=== PATIENT | female | born 1960 | race African-American/Black ===

== ENCOUNTER 2018-07-05 09:44 | Inpatient (IN) | payer OTHER ==
[2018-07-02 09:28] VITALS: BMI 32.8
[2018-07-05] MEDS ORDERED: HEPARIN NA (PORCINE) 5,000 UNITS/ML 1ML VIAL ONE (14:31)
[2018-07-05] MEDS ORDERED: BENZOIN TINCTURE SWABSTICK TP ONE (14:32)
[2018-07-05] MEDS ORDERED: THROMBIN (BOVINE) 5,000 UNIT VIAL TP ONE ×2 (14:32→15:28)
[2018-07-05] MEDS ORDERED: fentaNYL CITRATE 250 MCG/5 ML VIAL ONE (14:42)
[2018-07-05] MEDS ORDERED: PROPOFOL 20 ML ONE ×13 (14:42→17:43)
[2018-07-05] MEDS ORDERED: ROCURONIUM BROMIDE 50 MG/5 ML VIAL ONE (14:43)
[2018-07-05] MEDS ORDERED: SUCCINYLCHOLINE CHLORIDE 200 MG/10 ML VIAL ONE (14:43)
[2018-07-05] MEDS ORDERED: MIDAZOLAM HCL 2 MG/2 ML SINGLE DOSE VIAL ONE (14:43)
[2018-07-05] MEDS ORDERED: LIDOCAINE HCL/PF 2% SDV 5ML VIAL ONE (14:43)
[2018-07-05] MEDS ORDERED: VANCOMYCIN 1,000 MG VIAL (RESTRICTED TO ID ONLY) IVPB ONE (14:45)
[2018-07-05] MEDS ORDERED: ONDANSETRON 4 MG/2 ML VIAL ONE (14:49)
[2018-07-05] MEDS ORDERED: DEXAMETHASONE SOD PHOSPHATE 4 MG/1 ML VIAL ONE (14:49)
[2018-07-05] MEDS ORDERED: VANCOMYCIN 1,000 MG VIAL (RESTRICTED TO ID ONLY) ONE (14:53)
[2018-07-05] MEDS ORDERED: ceFAZolin SODIUM 1 GM VIAL ONE (15:28)
[2018-07-05] MEDS ORDERED: SODIUM CHLORIDE 0.9% P/F 10 ML VIAL IJ ONE (15:30)
[2018-07-05] MEDS ORDERED: ceFAZolin SODIUM 1 GM VIAL IVPB ONE (15:30)
[2018-07-05] MEDS ORDERED: ONDANSETRON 4 MG/2 ML VIAL IVPUSH PRN ×2 (16:03→18:17)
[2018-07-05] MEDS ORDERED: DEXAMETHASONE SOD PHOSPHATE 4 MG/1 ML VIAL IVPUSH PRN (16:03)
[2018-07-05] MEDS ORDERED: PROMETHAZINE HCL 25 MG/1 ML VIAL IVPB PRN (16:03)
[2018-07-05] MEDS ORDERED: HYDROmorphone *PCA* 10MG/50ML DISP.SYRIN PCA SCH (16:15)
[2018-07-05] MEDS ORDERED: LACTATED RINGERS SOLUTION 1,000 ML IV SCH (16:15)
[2018-07-05] MEDS ORDERED: TRANEXAMIC ACID 1000 MG/10 ML VIAL ONE (16:18)
[2018-07-05] MEDS ORDERED: GLYCOPYRROLATE 0.2 MG/1 ML VIAL ONE ×2 (16:35→17:56)
[2018-07-05] MEDS ORDERED: NEOSTIGMINE METHYLSULFATE 0.5 MG/1 ML - 10 ML MDV ONE ×2 (16:35→17:55)
[2018-07-05] MEDS ORDERED: METOPROLOL TARTRATE 5 MG/5 ML VIAL ONE (18:13)
--- NOTE | 2018-07-05 18:15 | PN ---
Progress Note (short form) - Note Progress Note: 57F s/p C5-C6 anterior cervical discectomy, decompression and instrumented fusion POD #0. -Admit to ICU x 24 hrs. for airway observation; OK to discharge home or downgrade to floor or discharge home 07/06/2018 if airway stable. -Maintain head of bed 45-60 degrees. -Pain medication: per anaesthesia team; no ECHO VASCULAR TECH; NO NSAID's. -DVT PPx: -Mechanical only: ALYSE's, SCD's. -Post-op Ancef x 2 doses. -f/u AM labs. -Incentive spirometry. -PT/OT/Rehab, OOB. -WBAT B/L UE & LE. -d/c Farrell catheter at midnight; f/u TOV (8 hours max). -Keep dressing clean & dry. -No heavy lifting, bending or twisting. -Advance diet as tolerated. -B/L UE & LE NV checks. -Care per ICU & primary medical hospitalist teams. -Discharge planning: f/u [facility] [place] office 07/15/2018; call for appointment; . Milton Mcnair MD (Orthopaedic Surgery).
--- NOTE | 2018-07-05 18:17 | OP ---
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
[2018-07-05] MEDS ORDERED: HYDROmorphone *PCA* 10MG/50ML DISP.SYRIN PCA ONE (18:26)
[2018-07-05] MEDS ORDERED: ACETAMINOPHEN 1000 MG/100 ML VIAL (NON FORMULARY) IVPB ONE (18:29)
[2018-07-05] MEDS ORDERED: ACETAMINOPHEN INJECTION 100 ML IVPB ONE (18:36)
[2018-07-05] MEDS: LACTATED RINGERS SOLUTION 1,000 ML IV SCH ×2 (21:15→21:48)
--- NOTE | 2018-07-05 21:58 | CONSULT ---
Consultation: REQUESTING PROVIDER: CONSULT REQUEST: We have been asked to medically evaluate this patient for ( post op care----> ICU admission). HISTORY OF PRESENT ILLNESS: Patient is a 57 year old female came in to the hospital for an elective back surgery. As per the patient, she had a mechanical fall in 2016 at work, since then she has been having back pain. Not relived with pain medication or physical therapy. Has been seeing Dr. Mcnair as outpatient for back pain and was sent in today for an elective surgery. Patient underwent C5-C6 ACDF today for C5-C6 intervertebral disc disorder with radiculopathy and myelopathy. Extubated post surgery and brought to the ICU for airway monitoring. Post op, patient looks comfortable, pain controlled with FLIGHT RADIO OPERATOR. Denies numbness, tingling, any focal neurological deficits, abdominal pain , nausea, vomiting, chest pain, shortness of breath, palpitation. Prior to illness, bowel/bladder habit normal. Sleep/Appetite normal. PAST MEDICAL HISTORY: Hypertension ALLERGIES: Aspirin (gets hives), Multiple foods PAST SURGICAL HISTORY: Right shoulder surgery in 2016 and sx for ectopic in 1996 SOCIAL HISTORY Smoking: Quit 6 yrs ago, smoked since teenager about a pack a day Alcohol: Quit 6 yrs ago. 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 REVIEW OF SYSTEMS: CONSTITUTIONAL: Absent: fever, chills, diaphoresis, generalized weakness, malaise, loss of appetite, weight change HEENT: Absent: rhinorrhea, nasal congestion, throat pain, throat swelling, difficulty swallowing, mouth swelling, ear pain, eye pain, visual changes CARDIOVASCULAR: Absent: chest pain, syncope, palpitations, irregular heart rate, lightheadedness , peripheral edema RESPIRATORY: Absent: cough, shortness of breath, dyspnea with exertion, orthopnea, wheezing, stridor, hemoptysis GASTROINTESTINAL: Absent: abdominal pain, abdominal distension, nausea, vomiting, diarrhea, constipation, melena, hematochezia GENITOURINARY: Absent: dysuria, frequency, urgency, hesitancy, hematuria, flank pain, genital pain MUSCULOSKELETAL: Present: Pain at the surgical site. Absent: myalgia, arthralgia, joint swelling, back pain, neck pain SKIN: Absent: rash, itching, pallor HEMATOLOGIC/IMMUNOLOGIC: Absent: easy bleeding, easy bruising, lymphadenopathy, frequent infections ENDOCRINE: Absent: unexplained weight gain, unexplained weight loss, heat intolerance, cold intolerance NEUROLOGIC: Absent: headache, focal weakness or paresthesias, dizziness, unsteady gait, seizure, mental status changes, bladder or bowel incontinence PSYCHIATRIC: Absent: anxiety, depression, suicidal or homicidal ideation, hallucinations. PHYSICAL EXAMINATION Vital Signs - 24 hr 07/05/18 07/05/18 07/05/18 11:08 11:15 18:19 Temperature 98.1 F 98.4 F Pulse Rate 67 74 Respiratory 20 16 Rate Blood Pressure 125/79 162/91 O2 Sat by Pulse 100 98 Oximetry (%) 07/05/18 07/05/18 07/05/18 18:30 18:35 18:50 Temperature Pulse Rate 69 69 63 Respiratory 16 16 16 Rate Blood Pressure 131/72 131/72 135/59 L O2 Sat by Pulse 100 100 Oximetry (%) 07/05/18 07/05/18 07/05/18 19:00 19:05 19:20 Temperature Pulse Rate 64 64 64 Respiratory 14 14 14 Rate Blood Pressure 122/81 122/81 142/78 O2 Sat by Pulse 100 100 Oximetry (%) 07/05/18 07/05/18 07/05/18 19:30 19:35 19:50 Temperature Pulse Rate 62 62 61 Respiratory 16 16 16 Rate Blood Pressure 139/74 139/74 141/92 O2 Sat by Pulse 100 100 Oximetry (%) 07/05/18 07/05/18 07/05/18 20:05 20:20 20:35 Temperature Pulse Rate 56 L 61 60 Respiratory 14 14 16 Rate Blood Pressure 121/70 122/72 124/68 O2 Sat by Pulse 100 100 100 Oximetry (%) 07/05/18 07/05/18 07/05/18 20:50 21:15 21:30 Temperature 97.9 F Pulse Rate 58 L 61 71 Respiratory 14 14 14 Rate Blood Pressure 127/72 137/78 138/82 O2 Sat by Pulse 100 Oximetry (%) GENERAL: Middle aged female, lying in bed comfortably, Awake, alert, and fully oriented, in no acute distress. EYES: EOM intact, no pallor or icterus. EARS, NOSE, THROAT: Moist mucous membranes. NECK: Dressing applied in the anterior part of the neck, no soakage. LUNGS: B/L lungs clear, no added sounds. HEART: Regular rate and rhythm, normal S1 and S2 without murmur. ABDOMEN: Soft, nontender, no organomegaly, BS +. UPPER EXTREMITIES: No peripheral edema. LOWER EXTREMITIES: No peripheral edema. NEUROLOGICAL: No facial droop. Normal speech. Gait not observed. SKIN: Warm, dry, normal turgor, no rashes or lesions noted. Laboratory Results - last 24 hr 07/05/18 07/05/18 10:05 10:49 Blood Type O POSITIVE O POSITIVE Antibody Screen Negative Active Medications Generic Name Dose Route Start Last Admin Trade Name Freq PRN Reason Stop Dose Admin Amlodipine Besylate 10 mg 07/06/18 10:00 Norvasc - PO DAILY A[facility] Cyclobenzaprine HCl 10 mg 07/06/18 10:00 Flexeril - PO DAILY [facility] Dexamethasone Sodium Phosphate 4 mg 07/05/18 16:03 Decadron Injection - IVPUSH ONCE PRN NAUSEA AND/OR VOMITING Diphenhydramine HCl 12.5 mg 07/05/18 16:03 Benadryl Injection - IVPUSH ONCE PRN FOR ITCHING Fentanyl 50 mcg 07/05/18 16:03 Sublimaze Injection - IVPUSH 07/06/18 03:00 Q5M PRN PAIN-PACU ORDER X 4 DOSES ONLY Gabapentin 400 mg 07/05/18 22:00 Neurontin - PO TID [facility] Hydromorphone HCl 10 mg 07/05/18 16:15 07/05/18 18:30 Dilaudid Freezer Laboratory Technician - FLIGHT RADIO OPERATOR 07/12/18 16:03 10 mg FLIGHT RADIO OPERATOR AARON Administration Protocol Lactated Ringer's 1,000 mls @ 125 mls/hr 07/05/18 18:30 07/05/18 21:48 Lactated Ringers Solution IV 125 mls/hr ASDIR AARON Administration Cefazolin Sodium/Dextrose 2 gm in 50 mls @ 100 mls/hr 07/05/18 23:30 Ancef 2 Gm Premixed Ivpb - IVPB 07/06/18 07:59 Q8H AARON Ondansetron HCl 4 mg 07/05/18 18:17 Zofran Injection IVPUSH Q6H PRN NAUSEA AND/OR VOMITING Oxycodone HCl 5 mg 07/05/18 18:17 Roxicodone - PO Q4H PRN PAIN LEVEL 1-5 Oxycodone HCl 10 mg 07/05/18 18:17 Roxicodone - PO Q4H PRN PAIN LEVEL 6-10 Promethazine HCl 12.5 mg 07/05/18 16:03 Phenergan Injection - IVPB Q6H PRN NAUSEA AND/OR VOMITING ASSESSMENT/PLAN: Patient is a 57 year old female with past medical history of hypertension came in to the hospital for an elective back surgery # Cervical radiculopathy and myelopathy s/p C5-C6 ACDF Extubated post op. EBL 30 ml, fluid vol replaced 1400 mls on FLIGHT RADIO OPERATOR pump for pain control OOB to chair in AM Physical therapy in AM Incentive spirometry Soft diet IV LR @ 125 mls/hr # Hypertension-controlled Continue Amlodipine 10 mg # FEN IV LR @ 125 mls/hr Electrolytes to be repeated in AM Soft Diet # Prophylaxis For DVT: On Scds, no chemical prophylaxis given recent surgery For GI: Not indicated # Code Status: Full Code # Dispo: Airway monitoring in ICU Mili Lenz, PGY-3. Dispo: We will continue to follow the patient. Thank you for this consultative opportunity.
[2018-07-05] MEDS: GABAPENTIN 400 MG CAPSULE (FP) PO SCH (22:34)
[2018-07-05] MEDS: CEFAZOLIN 2 GM/D5W 2 GM/50 ML ML IVPB SCH (22:34)
[2018-07-05] MEDS ORDERED: ceFAZolin 2 GRAM PREMIX BAG IVPB SCH (23:30)
--- NOTE | 2018-07-06 00:06 | PN ---
Physical Exam: SUBJECTIVE: Patient seen and examined OBJECTIVE: Vital Signs Period Temp Pulse Resp BP Sys/Mccrary Pulse Ox Last 24 Hr 97.9 F-98.4 F 56-75 14-20 121-162/59-92 98-100 GENERAL: The patient is awake, alert, and fully oriented, in no acute distress. HEAD: Normal with no signs of trauma. EYES: PERRL, extraocular movements intact, sclera anicteric, conjunctiva clear. No ptosis. ENT: Ears normal, nares patent, oropharynx clear without exudates, moist mucous membranes. NECK: Trachea midline, full range of motion, supple. LUNGS: Breath sounds equal, clear to auscultation bilaterally, no wheezes, no crackles, no accessory muscle use. HEART: Regular rate and rhythm, S1, S2 without murmur, rub or gallop. ABDOMEN: Soft, nontender, nondistended, normoactive bowel sounds, no guarding, no rebound, no hepatosplenomegaly, no masses. EXTREMITIES: 2+ pulses, warm, well-perfused, no edema. NEUROLOGICAL: Cranial nerves II through XII grossly intact. Normal speech, gait not observed. PSYCH: Normal mood, normal affect. SKIN: Warm, dry, normal turgor, no rashes or lesions noted Laboratory Results - last 24 hr 07/05/18 07/05/18 10:05 10:49 Blood Type O POSITIVE O POSITIVE Antibody Screen Negative Active Medications Generic Name Dose Route Start Last Admin Trade Name Freq PRN Reason Stop Dose Admin Amlodipine Besylate 10 mg 07/06/18 10:00 Norvasc - PO DAILY [facility] Cyclobenzaprine HCl 10 mg 07/06/18 10:00 Flexeril - PO DAILY [facility] Dexamethasone Sodium Phosphate 4 mg 07/05/18 16:03 Decadron Injection - IVPUSH ONCE PRN NAUSEA AND/OR VOMITING Diphenhydramine HCl 12.5 mg 07/05/18 16:03 Benadryl Injection - IVPUSH ONCE PRN FOR ITCHING Fentanyl 50 mcg 07/05/18 16:03 Sublimaze Injection - IVPUSH 07/06/18 03:00 Q5M PRN PAIN-PACU ORDER X 4 DOSES ONLY Gabapentin 400 mg 07/05/18 22:00 07/05/18 22:34 Neurontin - PO 400 mg TID A[facility]ON Administration Hydromorphone HCl 10 mg 07/05/18 16:15 07/05/18 18:30 Dilaudid Special Needs Caregiver - SEWER MAINTENANCE SUPERVISOR 07/12/18 16:03 10 mg SEWER MAINTENANCE SUPERVISOR AARON Administration Protocol Lactated Ringer's 1,000 mls @ 125 mls/hr 07/05/18 18:30 07/05/18 21:48 Lactated Ringers Solution IV 125 mls/hr ASDIR AARON Administration Cefazolin Sodium/Dextrose 2 gm in 50 mls @ 100 mls/hr 07/05/18 23:30 22:34 Ancef 2 Gm Premixed Ivpb - IVPB 07/06/18 07:59 100 mls/hr Q8H AARON Administration Ondansetron HCl 4 mg 07/05/18 18:17 Zofran Injection IVPUSH Q6H PRN NAUSEA AND/OR VOMITING Oxycodone HCl 5 mg 07/05/18 18:17 Roxicodone - PO Q4H PRN PAIN LEVEL 1-5 Oxycodone HCl 10 mg 07/05/18 18:17 Roxicodone - PO Q4H PRN PAIN LEVEL 6-10 Promethazine HCl 12.5 mg 07/05/18 16:03 Phenergan Injection - IVPB Q6H PRN NAUSEA AND/OR VOMITING ASSESSMENT/PLAN: Visit type - Emergency Visit Emergency Visit: No - New Patient This patient is new to me today: Yes Date on this admission: 07/05/18 - Critical Care Critical Care patient: Yes Total Critical Care Time (in minutes): 32 Critical Care Statement: The care of this patient involved high complexity decision making to prevent further life threatening deterioration of the patient 's condition and/or to evaluate & treat vital organ system(s) failure or risk of failure.
--- NOTE | 2018-07-06 01:21 | OP ---
DATE OF OPERATION: 07/05/2018 SURGEON: Milton Mcnair M.D. CAMPUS WELLNESS COORDINATOR: Raul Mcnair M.D. PREOPERATIVE DIAGNOSIS: Disk prolapse with kyphosis, C5-6. POSTOPERATIVE DIAGNOSIS: Disk prolapse with kyphosis, C5-6. OPERATION PERFORMED: 1. Anterior cervical diskectomy C5-6. 2. Partial corpectomy C5, partial corpectomy C6. 3. Insertion of interbody device (Fortilink cage) combined with bone graft. 4. Anterior plating thus completing instrumented anterior arthrodesis. ANESTHESIA: 2 g Kefzol, 1 g vancomycin, 10 mg of Decadron given preoperative. DESCRIPTION OF PROCEDURE: Patient brought in the operating room placed supine on the operating room table. The neck was extended with a transverse bolster placed behind the scapulae. Once this had been performed, the lateral fluoroscopic x-ray revealed excellent visualization of the neck, albeit the shoulders had been pulled downwards with appropriate taping. A window drape applied and the skin was cleansed with Betadine scrub solution, wiped off with alcohol, DuraPrep applied. Operation details: After timeout was called, imaging was available for intraoperative evaluation and lateral fluoroscopic x-rays were present. The wound was opened in the lines of Edward on the right hand side. The dissection was taken through the subcutaneous fat and very flimsy platysma encountered, but this was split. Investing layer was incised longitudinally up and down, that is from cranial to caudal. With a finger digital palpation, the undersurface of the investing layer was swept to free the underlying surface of the deeper muscle layer. Using digital palpation, the anterior vertebral column was easily palpated, sneaking a finger between the viscera and vessels. Cloward handheld retractors were used to retract the longus colli and this was freed, lifted off the bone of the vertebral bodies by about a half a centimeter both left and right hand side for the teeth of the retractor to be seated within the confines of the muscle. Once this had been performed, the correct levels of surgery were identified. A 90-90 bent 18-gauge needle was placed in the C5-6 disk. Lateral fluoroscopic x-ray confirmed our position. Medial and lateral retractors were inserted to open up the wound mediolaterally, superior, inferiorly retraction was facilitated by the use of Biola pins. 12-mm pins were sunk into the superior body of C5 and 1 Biola pin placed in the middle body of C6, an outrigger device applied for distraction. The disk was distracted. Somewhat large osteophytes were encountered anteriorly. Using unipolar Bovie on cutting, the annulus was cut off the edge of the bone, and using a 14-mm Midas Devan radha-tipped bur as well as number 1, 1.5, and 2 Kerrison entire disk was removed, all bone was removed appropriately, and appropriate partial corpectomies were necessary at C5 and C6 in order to provide an appropriate spacer for the actual interbody cage. This measured size 10. The dissection was taken right down to the theca. The entire posterior longitudinal ligament was removed, and the dissection was taken out laterally both on the left and right hand side as well. No neuromonitoring abnormality was encountered. The bleeding interspace was dealt with with FloSeal combined with thrombin-soaked Gelfoam sponges. This was left in situ for about 2-3 minutes, and all bleeding stopped. Size 10 Fortilink cage mixed with bone morphogenic mineral putty was then seated in a distracted manner, and once the cage was seated, the distraction device was removed, the Biola pins were then removed, and holes filled with bone wax. The table top that is the anterior surface of the vertebral body of C5 and C6 were then resected. It must be noted a large degree of bone was resected from C6 but partial corpectomy had been reformed. The plate was a size 16-mm 1-hole level plate, this was Simplicity plate, 4 screws inserted into the bone, had excellent solid fixation of plates. The screws were locked into position. No complications. Neuromonitoring remained completely stable throughout. A little bit of hand EMG activity for about a few minutes in the middle of the operation and then disappeared. Once this all had been ascertained and final films were taken, excellent positioning of the grafts and plates noted. The wounds were thoroughly lavaged and complete hemostasis achieved. Closure of the platysma with subcutaneous 2-0 Vicryl, skin 3-0 Monocryl with Steri-Strips. Drainage none. Operation went extremely well, no complications. MD ALEXEY Alberts/[id number]
[2018-07-06] MEDS: GABAPENTIN 400 MG CAPSULE (FP) PO SCH ×3 (05:54→21:48)
[2018-07-06] MEDS: CEFAZOLIN 2 GM/D5W 2 GM/50 ML ML IVPB SCH (06:31)
[2018-07-06] MEDS: oxyCODONE HCL 5 MG TABLET PO PRN ×3 (07:03→21:46)
--- NOTE | 2018-07-06 07:19 | PN ---
Physical Exam: SUBJECTIVE: Patient seen and examined at bedside, reported mild neck pain which Oxycodone has provided relief. Pt reported she is feeling well and would like to go home today. OBJECTIVE: Vital Signs Period Temp Pulse Resp BP Sys/Mccrary Pulse Ox Last 24 Hr 97.7 F-98.4 F 53-96 8-20 121-162/59-92 97-100 GENERAL: The patient is awake, alert, and fully oriented, in no acute distress. HEAD: Normal with no signs of trauma. EYES: PERRL, extraocular movements intact, sclera anicteric, conjunctiva clear. No ptosis. ENT: Ears normal, nares patent, oropharynx clear without exudates, moist mucous membranes. NECK: Dressing on anterior cervical area. Trachea midline, full range of motion , supple. LUNGS: Breath sounds equal, clear to auscultation bilaterally, no wheezes, no crackles, no accessory muscle use. HEART: Regular rate and rhythm, S1, S2 without murmur, rub or gallop. ABDOMEN: Soft, nontender, nondistended, normoactive bowel sounds, no guarding, no rebound, no hepatosplenomegaly, no masses. EXTREMITIES: 2+ pulses, warm, well-perfused, no edema. NEUROLOGICAL: Cranial nerves II through XII grossly intact. Full strength all extremities. Full sensation throughout. Normal speech, gait not observed. PSYCH: Normal mood, normal affect. SKIN: Warm, dry, normal turgor, no rashes or lesions noted Laboratory Results - last 24 hr 07/05/18 07/05/18 10:05 10:49 Blood Type O POSITIVE O POSITIVE Antibody Screen Negative Active Medications Generic Name Dose Route Start Last Admin Trade Name Freq PRN Reason Stop Dose Admin Amlodipine Besylate 10 mg 07/06/18 10:00 Norvasc - PO DAILY [facility] Cyclobenzaprine HCl 10 mg 07/06/18 10:00 Flexeril - PO DAILY [facility] Dexamethasone Sodium Phosphate 4 mg 07/05/18 16:03 Decadron Injection - IVPUSH ONCE PRN NAUSEA AND/OR VOMITING Diphenhydramine HCl 12.5 mg 07/05/18 16:03 Benadryl Injection - IVPUSH ONCE PRN FOR ITCHING Gabapentin 400 mg 07/05/18 22:00 07/06/18 05:54 Neurontin - PO 400 mg TID AARON Administration Hydromorphone HCl 10 mg 07/05/18 16:15 07/05/18 18:30 Dilaudid Director [employer] - EQUINE PHARMACOLOGY TECHNICIAN 07/12/18 16:03 10 mg EQUINE PHARMACOLOGY TECHNICIAN AARON Administration Protocol Lactated Ringer's 1,000 mls @ 125 mls/hr 07/05/18 18:30 07/05/18 21:48 Lactated Ringers Solution IV 125 mls/hr ASDIR AARON Administration Cefazolin Sodium/Dextrose 2 gm in 50 mls @ 100 mls/hr 07/05/18 23:30 06:31 Ancef 2 Gm Premixed Ivpb - IVPB 07/06/18 07:59 100 mls/hr Q8H AARON Administration Ondansetron HCl 4 mg 07/05/18 18:17 Zofran Injection IVPUSH Q6H PRN NAUSEA AND/OR VOMITING Oxycodone HCl 5 mg 07/05/18 18:17 Roxicodone - PO Q4H PRN PAIN LEVEL 1-5 Oxycodone HCl 10 mg 07/05/18 18:17 07/06/18 07:03 Roxicodone - PO 10 mg Q4H PRN Administration PAIN LEVEL 6-10 Promethazine HCl 12.5 mg 07/05/18 16:03 Phenergan Injection - IVPB Q6H PRN NAUSEA AND/OR VOMITING ASSESSMENT/PLAN: NEURO #C5-C6 ACDF POD1 -EQUINE PHARMACOLOGY TECHNICIAN for pain control --Pt has not used today -Oxycodone 5 mg PO Q4H PRN for pain -Oxycodone 10 mg PO Q4H PRN for pain -Phenergan 12.5 mg IV Q6H PRN for nausea -Zofran 4 mg IV Q6H PRN for nausea -Out of bed -Physical therapy RESPIRATORY -Satting well on room air -Continue to monitor CARDIOVASCULAR #HX OF HTN -Amlodipine 10 mg PO daily FEN -LR @ 125 cc/hour -Soft diet PPX -DVT: SCD, no chemical s/p surgery -GI: none DISPO Med/Surg Visit type - Emergency Visit Emergency Visit: No - New Patient This patient is new to me today: Yes Date on this admission: 07/06/18 - Critical Care Critical Care patient: No - Discharge Referral Referred to [facility] Med P.C.: No
[2018-07-06] MEDS: amLODIPine BESYLATE 10 MG TABLET (FP) PO SCH (09:28)
[2018-07-06] MEDS: CYCLOBENZAPRINE HCL 10 MG TABLET (FP) PO SCH (09:28)
[2018-07-06 10:58] LABS: HEMATOCRIT 39.4 % (32.4-45.2); HEMOGLOBIN 12.6 GM/dL (10.7-15.3); MCH 25.3 pg (25.7-33.7); MCHC 31.9 g/dl (32.0-36.0); MEAN CELL VOLUME 79.4 fl (80-96); MEAN PLT VOLUME 8.5 fl (7.5-11.1); PLATELET COUNT 270 K/MM3 (134-434); RBC 4.96 M/mm3 (3.60-5.2); RDW 15.6 % (11.6-15.6); WHITE BLOOD COUNT 23.3 K/mm3 (4.0-10.0)
[2018-07-06 11:27] LABS: ALBUMIN 3.3 g/dl (3.4-5.0); ALK PHOS 112 U/L (45-117); ANION GAP 6 MMOL/L (8-16); BILIRUBIN,TOTAL 0.4 mg/dL (0.2-1); BLOOD UREA NITROGEN 12 mg/dL (7-18); CALCIUM 9.2 mg/dL (8.5-10.1); CHLORIDE 101 mmol/L (98-107); CO2 31 mmol/L (21-32); CREATININE 0.8 mg/dL (0.55-1.3); GLUCOSE,RANDOM 158 mg/dL (74-106); MAGNESIUM 2.2 mg/dL (1.8-2.4); PHOSPHOROUS 3.4 mg/dL (2.5-4.9); POTASSIUM 3.7 mmol/L (3.5-5.1); SGOT/AST 32 U/L (15-37); SGPT/ALT 24 U/L (13-61); SODIUM 137 mmol/L (136-145); TOT PROT 7.2 g/dl (6.4-8.2)
--- NOTE | 2018-07-06 12:58 | PN ---
Teaching Attending Note Name of Resident: Valarie Goncalves ATTENDING PHYSICIAN STATEMENT I saw and evaluated the patient. I reviewed the resident's note and discussed the case with the resident. I agree with the resident's findings and plan as documented. SUBJECTIVE: Pt seen and examined in the ICU. Pain controlled. No shortness of breath. No fevers or chills. OBJECTIVE: Vital Signs Period Temp Pulse Resp BP Sys/Mccrary Pulse Ox Last 24 Hr 97.4 F-98.4 F 53-96 8-16 121-162/59-101 97-100 Intake & Output 07/03/18 07/04/18 07/05/18 07/06/18 23:59 23:59 23:59 23:59 Intake Total 1750 1980 Output Total 1425 900 Balance 325 1080 Gen: NAD in chair Heart: RRR Lung: decreased breath sounds at the bases Abd: soft, nontender Ext: no edema CBC, BMP 07/06/18 10:46 07/06/18 10:46 Active Medications Amlodipine Besylate (Norvasc -) 10 mg PO DAILY [facility] Last Admin: 07/06/18 09:28 Dose: 10 mg Cyclobenzaprine HCl (Flexeril -) 10 mg PO DAILY [facility] Last Admin: 07/06/18 09:28 Dose: 10 mg Dexamethasone Sodium Phosphate (Decadron Injection -) 4 mg IVPUSH ONCE PRN PRN Reason: NAUSEA AND/OR VOMITING Diphenhydramine HCl (Benadryl Injection -) 12.5 mg IVPUSH ONCE PRN PRN Reason: FOR ITCHING Gabapentin (Neurontin -) 400 mg PO TID [facility] Last Admin: 07/06/18 05:54 Dose: 400 mg Hydromorphone HCl (Dilaudid Plasterer Tender -) 10 mg TWISTHAND TWISTHAND [facility]; Protocol Stop: 07/12/18 16:03 Last Admin: 07/05/18 18:30 Dose: 10 mg Lactated Ringer's (Lactated Ringers Solution) 1,000 mls @ 125 mls/hr IV ASDIR [facility] Last Admin: 07/05/18 21:48 Dose: 125 mls/hr Ondansetron HCl (Zofran Injection) 4 mg IVPUSH Q6H PRN PRN Reason: NAUSEA AND/OR VOMITING Oxycodone HCl (Roxicodone -) 5 mg PO Q4H PRN PRN Reason: PAIN LEVEL 1-5 Oxycodone HCl (Roxicodone -) 10 mg PO Q4H PRN PRN Reason: PAIN LEVEL 6-10 Last Admin: 07/06/18 07:03 Dose: 10 mg Promethazine HCl (Phenergan Injection -) 12.5 mg IVPB Q6H PRN PRN Reason: NAUSEA AND/OR VOMITING ASSESSMENT AND PLAN: C5-C6 intervertebral disc disorder with radiculopathy and myelopathy s/p C5-C6 ACDF HTN - pain control - incentive spirometry - bowel regimen - PO as tolerated - rehab/PT - DVT prophylaxis - can monitor on floor
--- NOTE | 2018-07-06 20:32 | PN ---
Physical Exam: SUBJECTIVE: Patient seen and examined - s/p cervical spine fusion - no complaints voiced OBJECTIVE: Vital Signs Period Temp Pulse Resp BP Sys/Mccrary Pulse Ox Last 24 Hr 97.4 F-99.7 F 53-96 8-18 122-151/62-101 97-100 GENERAL: The patient is awake, alert, and fully oriented, in no acute distress. Sitting in chair at bedside HEAD: Normal with no signs of trauma. EYES: PERRL, extraocular movements intact, sclera anicteric, conjunctiva clear. ENT: nares patent, oropharynx clear without exudates, moist mucous membranes. NECK: Trachea midline, dry dsg anterior neck LUNGS: Breath sounds equal, clear to auscultation bilaterally, no wheezes, no crackles, no accessory muscle use. HEART: Regular rate and rhythm, S1, S2 without murmur, rub or gallop. ABDOMEN: Soft, nontender, nondistended, normoactive bowel sounds, no guarding, EXTREMITIES: 2+ pulses, warm, well-perfused, no edema. NEUROLOGICAL: Normal speech, gait not observed. normal sensation x 4 ext, full ROM x 4 PSYCH: Normal mood, normal affect. SKIN: Warm, dry, normal turgor, no rashes or lesions noted Laboratory Results - last 24 hr 07/06/18 07/06/18 10:46 10:46 WBC 23.3 H RBC 4.96 Hgb 12.6 Hct 39.4 MCV 79.4 L MCH 25.3 L MCHC 31.9 L RDW 15.6 Plt Count 270 MPV 8.5 Sodium 137 Potassium 3.7 Chloride 101 Carbon Dioxide 31 Anion Gap 6 L BUN 12 Creatinine 0.8 Creat Clearance w eGFR 74.47 Random Glucose 158 H Calcium 9.2 Phosphorus 3.4 Magnesium 2.2 Total Bilirubin 0.4 AST 32 ALT 24 Alkaline Phosphatase 112 Total Protein 7.2 Albumin 3.3 L Active Medications Generic Name Dose Route Start Last Admin Trade Name Freq PRN Reason Stop Dose Admin Amlodipine Besylate 10 mg 07/06/18 10:00 07/06/18 09:28 Norvasc - PO 10 mg DAILY AARON Administration Cyclobenzaprine HCl 10 mg 07/06/18 10:00 07/06/18 09:28 Flexeril - PO 10 mg DAILY AARON Administration Dexamethasone Sodium Phosphate 4 mg 07/05/18 16:03 Decadron Injection - IVPUSH ONCE PRN NAUSEA AND/OR VOMITING Diphenhydramine HCl 12.5 mg 07/05/18 16:03 Benadryl Injection - IVPUSH ONCE PRN FOR ITCHING Gabapentin 400 mg 07/05/18 22:00 07/06/18 15:20 Neurontin - PO 400 mg TID AARON Administration Hydromorphone HCl 10 mg 07/05/18 16:15 07/05/18 18:30 Dilaudid Filer And Sander - AIR BAG BUFFER 07/12/18 16:03 10 mg AIR BAG BUFFER AARON Administration Protocol Ondansetron HCl 4 mg 07/05/18 18:17 Zofran Injection IVPUSH Q6H PRN NAUSEA AND/OR VOMITING Oxycodone HCl 5 mg 07/05/18 18:17 07/06/18 15:20 Roxicodone - PO 5 mg Q4H PRN Administration PAIN LEVEL 1-5 Oxycodone HCl 10 mg 07/05/18 18:17 07/06/18 07:03 Roxicodone - PO 10 mg Q4H PRN Administration PAIN LEVEL 6-10 Promethazine HCl 12.5 mg 07/05/18 16:03 Phenergan Injection - IVPB Q6H PRN NAUSEA AND/OR VOMITING ASSESSMENT/PLAN: 58M POD1 s/p L4-5 posterior lumbar interbody fusion under GA- ETT. Problem List - Problems (1) Status post cervical spinal fusion Assessment/Plan: PT OOB to chair clears Pain control with neurontin/flexeril and oxycodone Phenergan PRN nausea transfer to [facility] floor in AM Code(s): Z98.1 - ARTHRODESIS STATUS (2) HTN (hypertension) Assessment/Plan: norvasc 10mg daily Code(s): I10 - ESSENTIAL (PRIMARY) HYPERTENSION (3) Prophylactic measure Assessment/Plan: ambulate SCDs/compression stockings Code(s): Z29.9 - ENCOUNTER FOR PROPHYLACTIC MEASURES, UNSPECIFIED Visit type - Emergency Visit Emergency Visit: No - New Patient This patient is new to me today: Yes Date on this admission: 07/06/18 - Critical Care Critical Care patient: Yes Total Critical Care Time (in minutes): 45 Critical Care Statement: The care of this patient involved high complexity decision making to prevent further life threatening deterioration of the patient 's condition and/or to evaluate & treat vital organ system(s) failure or risk of failure. - Discharge Referral Referred to [facility] Med P.C.: No
[2018-07-07] MEDS: GABAPENTIN 400 MG CAPSULE (FP) PO SCH (05:27)
[2018-07-07 06:31] LABS: BASO % 0.2 % (0-2.0); EOS % 0.1 % (0-4.5); HEMATOCRIT 38.4 % (32.4-45.2); HEMOGLOBIN 12.3 GM/dL (10.7-15.3); MCH 25.4 pg (25.7-33.7); MCHC 32.1 g/dl (32.0-36.0); MEAN CELL VOLUME 79.1 fl (80-96); MEAN PLT VOLUME 8.9 fl (7.5-11.1); NEUT % 71.7 % (42.8-82.8); PLATELET COUNT 273 K/MM3 (134-434); RBC 4.85 M/mm3 (3.60-5.2); RDW 15.5 % (11.6-15.6)
[2018-07-07 06:58] LABS: ANION GAP 4 MMOL/L (8-16); BLOOD UREA NITROGEN 11 mg/dL (7-18); CALCIUM 8.7 mg/dL (8.5-10.1); CHLORIDE 105 mmol/L (98-107); CO2 32 mmol/L (21-32); CREATININE 0.7 mg/dL (0.55-1.3); GLUCOSE,RANDOM 89 mg/dL (74-106); POTASSIUM 3.5 mmol/L (3.5-5.1); SODIUM 142 mmol/L (136-145)
--- NOTE | 2018-07-07 08:04 | PN ---
Physical Exam: SUBJECTIVE: Patient seen and examined at bedside, reported decreasing paresthesias. Pt reported she has ambulated without assistance. Pt stated she feels she is ready to go home. OBJECTIVE: Vital Signs Period Temp Pulse Resp BP Sys/Mccrary Pulse Ox Last 24 Hr 97.4 F-99.7 F 64-92 10-22 124-151/67-101 100-100 GENERAL: The patient is awake, alert, and fully oriented, in no acute distress. ambulated to restroom well unassisted. HEAD: Normal with no signs of trauma. EYES: PERRL, extraocular movements intact, sclera anicteric, conjunctiva clear. No ptosis. ENT: Ears normal, nares patent, oropharynx clear without exudates, moist mucous membranes. NECK: Dressing on anterior cervical area. Trachea midline, full range of motion , supple. LUNGS: Breath sounds equal, clear to auscultation bilaterally, no wheezes, no crackles, no accessory muscle use. HEART: Regular rate and rhythm, S1, S2 without murmur, rub or gallop. ABDOMEN: Soft, nontender, nondistended, normoactive bowel sounds, no guarding, no rebound, no hepatosplenomegaly, no masses. EXTREMITIES: 2+ pulses, warm, well-perfused. 4+ pitting edema to bilateral lower extremities up to the knees. NEUROLOGICAL: Cranial nerves II through XII grossly intact. Full strength all extremities. Full sensation throughout. Normal speech, gait not observed. PSYCH: Normal mood, normal affect. SKIN: Warm, dry, normal turgor, no rashes or lesions noted. Laboratory Results - last 24 hr 07/06/18 07/06/18 07/07/18 10:46 10:46 05:30 WBC 23.3 H 15.0 H RBC 4.96 4.85 Hgb 12.6 12.3 Hct 39.4 38.4 MCV 79.4 L 79.1 L MCH 25.3 L 25.4 L MCHC 31.9 L 32.1 RDW 15.6 15.5 Plt Count 270 273 MPV 8.5 8.9 Absolute Neuts (auto) 10.8 H Neutrophils % 71.7 Lymphocytes % 20.0 Monocytes % 8.0 Eosinophils % 0.1 Basophils % 0.2 Nucleated RBC % 0 Sodium 137 Potassium 3.7 Chloride 101 Carbon Dioxide 31 Anion Gap 6 L BUN 12 Creatinine 0.8 Creat Clearance w eGFR 74.47 Random Glucose 158 H Calcium 9.2 Phosphorus 3.4 Magnesium 2.2 Total Bilirubin 0.4 AST 32 ALT 24 Alkaline Phosphatase 112 Total Protein 7.2 Albumin 3.3 L 07/07/18 05:30 WBC RBC Hgb Hct MCV MCH MCHC RDW Plt Count MPV Absolute Neuts (auto) Neutrophils % Lymphocytes % Monocytes % Eosinophils % Basophils % Nucleated RBC % Sodium 142 Potassium 3.5 Chloride 105 Carbon Dioxide 32 Anion Gap 4 L BUN 11 Creatinine 0.7 Creat Clearance w eGFR 86.88 Random Glucose 89 Calcium 8.7 Phosphorus Magnesium Total Bilirubin AST ALT Alkaline Phosphatase Total Protein Albumin Active Medications Generic Name Dose Route Start Last Admin Trade Name Freq PRN Reason Stop Dose Admin Amlodipine Besylate 10 mg 07/06/18 10:00 07/06/18 09:28 Norvasc - PO 10 mg DAILY AARON Administration Cyclobenzaprine HCl 10 mg 07/06/18 10:00 07/06/18 09:28 Flexeril - PO 10 mg DAILY AARON Administration Dexamethasone Sodium Phosphate 4 mg 07/05/18 16:03 Decadron Injection - IVPUSH ONCE PRN NAUSEA AND/OR VOMITING Diphenhydramine HCl 12.5 mg 07/05/18 16:03 Benadryl Injection - IVPUSH ONCE PRN FOR ITCHING Gabapentin 400 mg 07/05/18 22:00 07/07/18 05:27 Neurontin - PO 400 mg TID AARON Administration Hydromorphone HCl 10 mg 07/05/18 16:15 07/05/18 18:30 Dilaudid Lighting Engineering Technician - LIBRARY CLERK 07/12/18 16:03 10 mg LIBRARY CLERK AARON Administration Protocol Ondansetron HCl 4 mg 07/05/18 18:17 Zofran Injection IVPUSH Q6H PRN NAUSEA AND/OR VOMITING Oxycodone HCl 5 mg 07/05/18 18:17 07/06/18 21:46 Roxicodone - PO 5 mg Q4H PRN Administration PAIN LEVEL 1-5 Oxycodone HCl 10 mg 07/05/18 18:17 07/06/18 07:03 Roxicodone - PO 10 mg Q4H PRN Administration PAIN LEVEL 6-10 Promethazine HCl 12.5 mg 07/05/18 16:03 Phenergan Injection - IVPB Q6H PRN NAUSEA AND/OR VOMITING ASSESSMENT/PLAN: NEURO #C5-C6 ACDF POD1 -Oxycodone 5 mg PO Q4H PRN for pain -Oxycodone 10 mg PO Q4H PRN for pain -Phenergan 12.5 mg IV Q6H PRN for nausea -Zofran 4 mg IV Q6H PRN for nausea -Out of bed -Physical therapy RESPIRATORY -Satting well on room air -Continue to monitor CARDIOVASCULAR #HX OF HTN -Amlodipine 10 mg PO daily FEN -No IVF -Soft diet PPX -DVT: SCD, no chemical s/p surgery -GI: none DISPO DC home per Dr. Mcnair -Outpatient follow up on with Dr. Mcnair Primary team to prepare discharge Visit type - Emergency Visit Emergency Visit: No - New Patient This patient is new to me today: No - Critical Care Critical Care patient: No - Discharge Referral Referred to [facility] Med P.C.: No
[2018-07-07] MEDS: oxyCODONE HCL 5 MG TABLET PO PRN (08:19)
[2018-07-07] MEDS: CYCLOBENZAPRINE HCL 10 MG TABLET (FP) PO SCH (09:04)
[2018-07-07] MEDS: amLODIPine BESYLATE 10 MG TABLET (FP) PO SCH (09:04)
--- NOTE | 2018-07-07 10:01 | PN ---
Physical Exam: SUBJECTIVE: Patient seen and examined in the icu. 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 s/p cervical spine fusion on 07/05/18 Vital Signs Period Temp Pulse Resp BP Sys/Mccrary Pulse Ox Last 24 Hr 97.8 F-99.7 F 64-92 14-22 124-151/62-98 100 GENERAL: The patient is awake, alert, and fully oriented, in no acute distress. Sitting in chair at bedside HEAD: Normal with no signs of trauma. EYES: PERRL, extraocular movements intact, sclera anicteric, conjunctiva clear. ENT: nares patent, oropharynx clear without exudates, moist mucous membranes. NECK: Trachea midline, dry dsg anterior neck LUNGS: Breath sounds equal, clear to auscultation bilaterally, no wheezes, no crackles, no accessory muscle use. HEART: Regular rate and rhythm, S1, S2 without murmur, rub or gallop. ABDOMEN: Soft, nontender, nondistended, normoactive bowel sounds, no guarding, EXTREMITIES: 2+ pulses, warm, well-perfused, no edema. NEUROLOGICAL: Normal speech, gait not observed. normal sensation x 4 ext, full ROM x 4 PSYCH: Normal mood, normal affect. SKIN: Warm, dry, normal turgor, no rashes or lesions noted Laboratory Results - last 24 hr 07/06/18 07/06/18 07/07/18 10:46 10:46 05:30 WBC 23.3 H 15.0 H RBC 4.96 4.85 Hgb 12.6 12.3 Hct 39.4 38.4 MCV 79.4 L 79.1 L MCH 25.3 L 25.4 L MCHC 31.9 L 32.1 RDW 15.6 15.5 Plt Count 270 273 MPV 8.5 8.9 Absolute Neuts (auto) 10.8 H Neutrophils % 71.7 Lymphocytes % 20.0 Monocytes % 8.0 Eosinophils % 0.1 Basophils % 0.2 Nucleated RBC % 0 Sodium 137 Potassium 3.7 Chloride 101 Carbon Dioxide 31 Anion Gap 6 L BUN 12 Creatinine 0.8 Creat Clearance w eGFR 74.47 Random Glucose 158 H Calcium 9.2 Phosphorus 3.4 Magnesium 2.2 Total Bilirubin 0.4 AST 32 ALT 24 Alkaline Phosphatase 112 Total Protein 7.2 Albumin 3.3 L 07/07/18 05:30 WBC RBC Hgb Hct MCV MCH MCHC RDW Plt Count MPV Absolute Neuts (auto) Neutrophils % Lymphocytes % Monocytes % Eosinophils % Basophils % Nucleated RBC % Sodium 142 Potassium 3.5 Chloride 105 Carbon Dioxide 32 Anion Gap 4 L BUN 11 Creatinine 0.7 Creat Clearance w eGFR 86.88 Random Glucose 89 Calcium 8.7 Phosphorus Magnesium Total Bilirubin AST ALT Alkaline Phosphatase Total Protein Albumin Active Medications Generic Name Dose Route Start Last Admin Trade Name Freq PRN Reason Stop Dose Admin Amlodipine Besylate 10 mg 07/06/18 10:00 07/07/18 09:04 Norvasc - PO 10 mg DAILY AARON Administration Cyclobenzaprine HCl 10 mg 07/06/18 10:00 07/07/18 09:04 Flexeril - PO 10 mg DAILY AARON Administration Dexamethasone Sodium Phosphate 4 mg 07/05/18 16:03 Decadron Injection - IVPUSH ONCE PRN NAUSEA AND/OR VOMITING Diphenhydramine HCl 12.5 mg 07/05/18 16:03 Benadryl Injection - IVPUSH ONCE PRN FOR ITCHING Gabapentin 400 mg 07/05/18 22:00 07/07/18 05:27 Neurontin - PO 400 mg TID AARON Administration Hydromorphone HCl 10 mg 07/05/18 16:15 07/05/18 18:30 Dilaudid Worksite Wellness Practitioner - NECK PINNER 07/12/18 16:03 10 mg NECK PINNER AARON Administration Protocol Ondansetron HCl 4 mg 07/05/18 18:17 Zofran Injection IVPUSH Q6H PRN NAUSEA AND/OR VOMITING Oxycodone HCl 5 mg 07/05/18 18:17 07/06/18 21:46 Roxicodone - PO 5 mg Q4H PRN Administration PAIN LEVEL 1-5 Oxycodone HCl 10 mg 07/05/18 18:17 07/07/18 08:19 Roxicodone - PO 10 mg Q4H PRN Administration PAIN LEVEL 6-10 Promethazine HCl 12.5 mg 07/05/18 16:03 Phenergan Injection - IVPB Q6H PRN NAUSEA AND/OR VOMITING ASSESSMENT/PLAN: Patient is a 57 year old female with a past medical history of hypertension. She is s/p POD2 s/p L4-5 posterior lumbar interbody fusion under GA-ETT. She has been cleared for discharge by surgeon. She is tolerating her diet (soft) without difficulty in swallowing. No airway compromise. Ambulated with PT today. Surgery s/p post cervical spinal fusion with Dr. Mcnair. Tolerating physical therapy pain management with oxycodone tolerating soft diet without difficulty Pain control with oxycodone (patient has oxycodone prescription at home) Card: Hypertension. controlled. On Norvasc 10mg daily fen tolerating soft diet monitor electrolytes soft diet prophy scds, ambulation. full code Discharge: Discharge home per Dr. Mcnair with follow up on full code. Visit type - Emergency Visit Emergency Visit: Yes ED Registration Date: 07/05/18 Care time: The patient presented to the Emergency Department on the above date and was hospitalized for further evaluation of their emergent condition. - New Patient This patient is new to me today: Yes Date on this admission: 07/07/18 - Critical Care Critical Care patient: No - Discharge Referral Referred to [facility] Med P.C.: No
--- NOTE | 2018-07-07 10:17 | DS ---
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 s/p cervical spine fusion on 07/05/18 Vital Signs Period Temp Pulse Resp BP Sys/Mccrary Pulse Ox Last 24 Hr 97.8 F-99.7 F 64-92 14-22 124-151/62-98 100 PHYSICAL EXAM GENERAL: The patient is awake, alert, and fully oriented, in no acute distress. Sitting in chair at bedside HEAD: Normal with no signs of trauma. EYES: PERRL, extraocular movements intact, sclera anicteric, conjunctiva clear. ENT: nares patent, oropharynx clear without exudates, moist mucous membranes. NECK: Trachea midline, dry dsg anterior neck LUNGS: Breath sounds equal, clear to auscultation bilaterally, no wheezes, no crackles, no accessory muscle use. HEART: Regular rate and rhythm, S1, S2 without murmur, rub or gallop. ABDOMEN: Soft, nontender, nondistended, normoactive bowel sounds, no guarding, EXTREMITIES: 2+ pulses, warm, well-perfused, no edema. NEUROLOGICAL: Normal speech, gait not observed. normal sensation x 4 ext, full ROM x 4 PSYCH: Normal mood, normal affect. SKIN: Warm, dry, normal turgor, no rashes or lesions noted LABS Laboratory Results - last 24 hr 07/06/18 07/06/18 07/07/18 10:46 10:46 05:30 WBC 23.3 H 15.0 H RBC 4.96 4.85 Hgb 12.6 12.3 Hct 39.4 38.4 MCV 79.4 L 79.1 L MCH 25.3 L 25.4 L MCHC 31.9 L 32.1 RDW 15.6 15.5 Plt Count 270 273 MPV 8.5 8.9 Absolute Neuts (auto) 10.8 H Neutrophils % 71.7 Lymphocytes % 20.0 Monocytes % 8.0 Eosinophils % 0.1 Basophils % 0.2 Nucleated RBC % 0 Sodium 137 Potassium 3.7 Chloride 101 Carbon Dioxide 31 Anion Gap 6 L BUN 12 Creatinine 0.8 Creat Clearance w eGFR 74.47 Random Glucose 158 H Calcium 9.2 Phosphorus 3.4 Magnesium 2.2 Total Bilirubin 0.4 AST 32 ALT 24 Alkaline Phosphatase 112 Total Protein 7.2 Albumin 3.3 L 07/07/18 05:30 WBC RBC Hgb Hct MCV MCH MCHC RDW Plt Count MPV Absolute Neuts (auto) Neutrophils % Lymphocytes % Monocytes % Eosinophils % Basophils % Nucleated RBC % Sodium 142 Potassium 3.5 Chloride 105 Carbon Dioxide 32 Anion Gap 4 L BUN 11 Creatinine 0.7 Creat Clearance w eGFR 86.88 Random Glucose 89 Calcium 8.7 Phosphorus Magnesium Total Bilirubin AST ALT Alkaline Phosphatase Total Protein Albumin HOSPITAL COURSE: Date of Admission:07/05/18 Date of Discharge: 07/07/18 ASSESSMENT/PLAN: Patient is a 57 year old female with a past medical history of hypertension. She is s/p POD2 s/p L4-5 posterior lumbar interbody fusion under GA-ETT. She has been cleared for discharge by surgeon. She is tolerating her diet (soft) without difficulty in swallowing. No airway compromise. Ambulated with PT today. Surgery s/p post cervical spinal fusion with Dr. Mcnair. Tolerating physical therapy pain management with oxycodone tolerating soft diet without difficulty Pain control with oxycodone (patient has oxycodone prescription at home) Card: Hypertension. controlled. On Norvasc 10mg daily fen tolerating soft diet monitor electrolytes soft diet prophy scds, ambulation. full code Discharge: Discharge home per Dr. Mcnair with follow up on full code. Minutes to complete discharge: 60 Discharge Summary Reason For Visit: SPINAL STENOSIS, CERVICAL REGION Current Active Problems HTN (hypertension) (Acute) Prophylactic measure (Acute) Status post cervical spinal fusion (Acute) Condition: Improved - Instructions Diet, Activity, Other Instructions: Dr. Milton Mcnair's Discharge Instructions Post Operative Instructions Physical activity Resume your normal everyday activity as tolerated no heavy lifting or exercise until seen by your surgeon. You may walk unlimited amounts of and climb stairs. You may resume driving the car when you feel safe and comfortable behind the wheel. Wound care If you have a bandage, leave it on, and keep dry. Do Not peel them off. If there are tapes present on the skin, they can get wet. Call Dr. Mcnair office if you have questions regarding the bandages. Dr Mcnair will do the first dressing change. Diet There are no dietary restrictions. Eat healthy soft diet. Drink 6 to 8 glasses of liquid each day. This will assist in keeping your bowels are regular. Pain management You may take Tylenol or oxycodone for pain. Do not take any NSAIDs (motrin, aleve, aspirin, ibuprophen) until cleared by your surgeon. Call Dr. Mcnair for any of the following: -Severe pain not relieved by medication -Fever of 101 or higher -Excessive bleeding or drainage on dressing Call the office for a post operative appointment in 7 - 10 days. Referrals: Milton Mcnair MD [Staff Physician] - 1 Week Disposition: HOME - Home Medications Comprehensive Discharge Medication List: Ambulatory Orders Amlodipine Besylate 10 mg PO DAILY 07/02/18 Ibuprofen [Motrin Ib] 200 mg PO PRN PRN 07/02/18 Multivitamin [One-Daily Multi-Vitamin] 1 each PO DAILY 07/02/18 Cyclobenzaprine HCl 10 mg PO DAILY #15 tablet 07/07/18 Gabapentin 400 mg PO TID #15 capsule 07/07/18 This patient is new to me today: Yes Date on this admission: 07/07/18 Emergency Visit: No Critical Care patient: No - Discharge Referral Referred to [facility] No
[2018-07-07 11:15] VITALS: TEMP 98.7
--- NOTE | 2018-07-07 12:12 | PN ---
Teaching Attending Note Name of Resident: Valarie Goncalves ATTENDING PHYSICIAN STATEMENT I saw and evaluated the patient. I reviewed the resident's note and discussed the case with the resident. I agree with the resident's findings and plan as documented. SUBJECTIVE: Pt seen and examined in the ICU. Feels better. No current complaints. Ambulated with physical therapy. Tolerating PO. OBJECTIVE: Vital Signs Period Temp Pulse Resp BP Sys/Mccrary Pulse Ox Last 24 Hr 97.8 F-99.7 F 64-92 7-22 118-151/62-98 100-100 Intake & Output 07/04/18 07/05/18 07/06/18 07/07/18 23:59 23:59 23:59 23:59 Intake Total 1750 2480 Output Total 1425 1200 Balance 325 1280 Gen: NAD at rest Heart: RRR Lung: decreased breath sounds at the bases Abd: soft, nontender Ext: no edema CBC, BMP 07/07/18 05:30 07/07/18 05:30 Active Medications Amlodipine Besylate (Norvasc -) 10 mg PO DAILY [facility] Last Admin: 07/07/18 09:04 Dose: 10 mg Cyclobenzaprine HCl (Flexeril -) 10 mg PO DAILY [facility] Last Admin: 07/07/18 09:04 Dose: 10 mg Dexamethasone Sodium Phosphate (Decadron Injection -) 4 mg IVPUSH ONCE PRN PRN Reason: NAUSEA AND/OR VOMITING Diphenhydramine HCl (Benadryl Injection -) 12.5 mg IVPUSH ONCE PRN PRN Reason: FOR ITCHING Gabapentin (Neurontin -) 400 mg PO TID [facility] Last Admin: 07/07/18 05:27 Dose: 400 mg Hydromorphone HCl (Dilaudid Meat Grinder -) 10 mg PIERCER PIERCER [facility]; Protocol Stop: 07/12/18 16:03 Last Admin: 07/05/18 18:30 Dose: 10 mg Ondansetron HCl (Zofran Injection) 4 mg IVPUSH Q6H PRN PRN Reason: NAUSEA AND/OR VOMITING Oxycodone HCl (Roxicodone -) 5 mg PO Q4H PRN PRN Reason: PAIN LEVEL 1-5 Last Admin: 07/06/18 21:46 Dose: 5 mg Oxycodone HCl (Roxicodone -) 10 mg PO Q4H PRN PRN Reason: PAIN LEVEL 6-10 Last Admin: 07/07/18 08:19 Dose: 10 mg Promethazine HCl (Phenergan Injection -) 12.5 mg IVPB Q6H PRN PRN Reason: NAUSEA AND/OR VOMITING ASSESSMENT AND PLAN: 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
[2018-07-07 12:49] VITALS: BP 114/62; PULSE 102
--- NOTE | 2018-07-07 16:32 | PATH ---
Surgical Pathology Report Patient Name: SHAHEEN GOODMAN Med. Rec. 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 Specimen(s) Received CERVICAL DISCS Clinical History Spinal stenosis, cervical region Final Diagnosis CERVICAL DISCS, C5-6, ANTERIOR CERVICAL DISCECTOMY: BENIGN INTERVERTEBRAL DISC TISSUE. Electronically Signed Juliette Mendez M.D. Gross Description Received in formalin labeled "cervical disc," is a 1.5 x 1.3 x 0.3 cm aggregate of weiss fragments of fibrocartilaginous tissue. The specimen is entirely submitted in one cassette. /07/06/2018 [facility]07/06/2018
== END 2018-07-07 14:12 | disposition home or self-care (01) | DRG 321 ==
LOC: JSAMEDAYSX 09:44 → JICU 21:14
PROVIDERS: ADMIT Orthopaedic Surgery Orthopaedic Surgery of the Spine; ATTEND Nurse Practitioner Family
PROC: 0RT30ZZ Resection of Cervical Vertebral Disc, Open Approach (ICD-10-PCS; 2018-07-05)
PROC: B01BZZZ Fluoroscopy of Spinal Cord (ICD-10-PCS; 2018-07-05)
PROC: 4A1104G Monitoring of Peripheral Nervous Electrical Activity, Intraoperative, Open Approach (ICD-10-PCS; 2018-07-05)
PROC: 0RG10A0 Fusion of Cervical Vertebral Joint with Interbody Fusion Device, Anterior Approach, Anterior Column, Open Approach (ICD-10-PCS; principal; 2018-07-05 12:00)
DX: M40.292 Other kyphosis, cervical region (principal); M50.022 Cervical disc disorder at C5-C6 level with myelopathy; M50.122 Cervical disc disorder at C5-C6 level with radiculopathy; I10 Essential (primary) hypertension
CPT/HCPCS: 36415; 76000-TC-FY; 80048; 80053; 83735; 84100; 85025; 85027; 86850; 86900; 86901; 88304-TC; 94760; 97116-GP; 97161-GP; J0131; J1644

== ENCOUNTER 2022-04-11 08:01 | Day surgery (SDC) | payer OTHER ==
[2022-04-03 13:46] VITALS: BMI 35.2
[2022-04-11] MEDS ORDERED: DEXAMETHASONE SOD PHOSPHATE 10 MG/1 ML VIAL ONE (09:45)
[2022-04-11] MEDS ORDERED: ROPIVACAINE HCL 0.5% 30ML VIAL ONE (09:45)
[2022-04-11] MEDS ORDERED: MIDAZOLAM HCL 2 MG/2 ML SINGLE DOSE VIAL ONE (09:45)
[2022-04-11] MEDS ORDERED: ROCURONIUM BROMIDE 50 MG/5 ML SYRINGE ONE (10:11)
[2022-04-11] MEDS ORDERED: oxyCODONE HCL 5 MG TABLET PO PRN (12:26)
[2022-04-11] MEDS ORDERED: ONDANSETRON 4 MG/2 ML VIAL IVPUSH PRN (12:26)
[2022-04-11] MEDS ORDERED: PROMETHAZINE HCL 25 MG/1 ML VIAL IVPUSH PRN (12:26)
[2022-04-11] MEDS ORDERED: LACTATED RINGERS SOLUTION 1,000 ML IV SCH (12:30)
[2022-04-11] MEDS ORDERED: FENTANYL CITRATE/PF 50 MCG/ML VIAL ONE (13:23)
[2022-04-11] MEDS ORDERED: oxyCODONE HCL 5 MG TABLET ONE (13:59)
[2022-04-11] MEDS ORDERED: GABAPENTIN 400 MG CAPSULE PO SCH (14:00)
[2022-04-11 14:32] VITALS: TEMP 97.8
[2022-04-11 14:57] VITALS: BP 140/74; PULSE 70; RESP 19
[2022-04-11] MEDS ORDERED: CYCLOBENZAPRINE HCL 10 MG TABLET (FP) PO SCH (22:00)
[2022-04-11] MEDS ORDERED: ROSUVASTATIN CA 10 MG TABLET PO SCH (22:00)
[2022-04-12] MEDS ORDERED: amLODIPine BESYLATE 10 MG TABLET (FP) PO SCH (10:00)
== END 2022-04-11 14:57 | disposition home or self-care (01) ==
LOC: FASU 08:01
PROVIDERS: ATTEND Orthopaedic Surgery Orthopaedic Surgery of the Spine
PROC: 0LQ10ZZ Repair Right Shoulder Tendon, Open Approach (ICD-10-PCS; 2022-04-11)
PROC: 0PB90ZZ Excision of Right Clavicle, Open Approach (ICD-10-PCS; principal; 2022-04-11 10:56)
PROC: 0MN10ZZ Release Right Shoulder Bursa and Ligament, Open Approach (ICD-10-PCS; 2022-04-11 10:56)
DX: M75.121 Complete rotator cuff tear or rupture of right shoulder, not specified as traumatic (principal); M75.41 Impingement syndrome of right shoulder
CPT/HCPCS: 88304-TC; 88311-TC; 94760; J1100